=== PATIENT | female | born 1980 | race Caucasian/White ===

== ENCOUNTER → 2018-02-09 09:35 | Outpatient (CLI) | payer BC | END | disposition home or self-care (01) | LOC: D.RAD 08:45 → D.US 09:00 → D.NM 09:30 → D.RAD 09:35 | DX: R10.9 Unspecified abdominal pain (principal); K92.1 Melena; R19.7 Diarrhea, unspecified; R19.4 Change in bowel habit; K59.00 Constipation, unspecified ==

== ENCOUNTER → 2018-02-21 07:19 | Outpatient (CLI) | payer BC | END | disposition home or self-care (01) | LOC: D.RAD 07:19 | DX: K59.00 Constipation, unspecified (principal); K92.1 Melena; R10.30 Lower abdominal pain, unspecified ==

== ENCOUNTER → 2018-04-07 08:23 | Outpatient (CLI) | payer BC | END | disposition home or self-care (01) | LOC: D.CT 08:23 | DX: R93.8 Abnormal findings on diagnostic imaging of other specified body structures (principal); R10.9 Unspecified abdominal pain ==

== ENCOUNTER → 2018-05-26 09:48 | Outpatient (CLI) | payer BC | END | disposition home or self-care (01) | LOC: D.RAD 09:48 → D.LAB 09:48 | DX: Z11.1 Encounter for screening for respiratory tuberculosis (principal) ==